=== PATIENT | male | born 1995 | race American Indian/Alaskan Native ===

== ENCOUNTER 2020-07-04 15:58 | Emergency (ER) | payer MEDICAID, SELFPAY ==
[2020-07-04 15:59] VITALS: BP 147/91; PULSE 106; RESP 16; TEMP 35.7; O2SAT 99; BMI 33.3
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
[2020-07-04] MEDS: HYDROcodone Bitartrate/Apap 5/325 Tablet PO (16:37)
--- NOTE | 2020-07-04 17:56 | ED.DEP ---
ED Disposition - Plan for ED Patient: Instructions: ED Fracture, Foot Prescriptions: Hydrocodone Bitart/Apap 5-325 [[place] 5MG-325MG] 1 tab PO Q6H PRN PRN 3 Days #10 tab PRN Reason: Pain Prescription Printed Referrals: Arnold Dominique DPM [STAFF PHYSICIAN] -
[2020-07-04 18:59] VITALS: BP 132/67; PULSE 65; RESP 18; O2SAT 97
== END 2020-07-04 19:01 | disposition home or self-care (01) ==
PROVIDERS: Emergency Provider Emergency Medicine
DX: S92.352A Displaced fracture of fifth metatarsal bone, left foot, initial encounter for closed fracture (principal); X50.1XXA Overexertion from prolonged static or awkward postures, initial encounter; Y93.55 Activity, bike riding; Y92.9 Unspecified place or not applicable; Y99.9 Unspecified external cause status; Z72.0 Tobacco use
CPT/HCPCS: 73630; 99284